=== PATIENT | male | born 1940 | race Caucasian/White ===

== ENCOUNTER 2017-03-21 12:26 | Outpatient (CLI) | payer MEDICARE ==
--- NOTE | 2017-03-21 16:22 | RAD ---
THREE VIEWS LUMBAR SPINE 03/21/2017 HISTORY: Lumbar radiculopathy. COMPARISON: 09/18/2008. FINDINGS: Again noted are 5 [id number] lumbar-type vertebral bodies. Again noted is grade I anterolisthe sis of L4 on L5. There appears to be fusion of the L5-S1 level. There is narrowing of the interver tebral disk spaces throughout the lumbar spine with end-plate degenerative changes seen at the L4-5 level. There are facet degenerative changes seen at the L4-5 level. No fracture is seen. Vascular calcifications seen in the abdominal aorta and iliac arteries. Surgical clips overlie the pelvis. IMPRESSION: 1. Degenerative changes within the lumbar spine. 2. Stable grade I anterolisthesis of L4 on L5, but the degenerative changes have progressed with gre ater loss of intervertebral disk height at all levels. POS: [facility]
--- NOTE | 2017-03-21 16:42 | CT ---
CT LUMBAR SPINE NONCONTRAST: History: Low back pain. Comparison: MRI from 09-12-16. FINDINGS: Vertebral body heights are maintained. Gas disc phenomenon is present at the L2-3, L3-4, a nd L4-5 levels. Minimal degenerative spondylolisthesis at the L4-5 level is similar in appearance to the prior MRI. There is partial fusion at the lumbosacral junction. Disc bulges and central canal and foraminal stenoses are unchanged from the prior MRI. A right pars intraarticularis defect is apparent at the L4-5 level. No acute fracture or dislocation are visible. There is prominent osteophytosis throughout the vertebral bodies and facets. IMPRESSION: 1. Prominent lumbar spondylosis, with stenoses and other degenerative changes, stable compared to MR I from 09-12-16. 2. 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 There is grade I spondylolisthesis at this leve l. 3. No evidence of compression fracture of the lumbar spine. POS: [facility]
== END 2017-03-21 12:27 | disposition home or self-care (01) ==
LOC: NAV CT 12:26
PROVIDERS: ATTEND Nurse Practitioner Family
DX: M47.26 Other spondylosis with radiculopathy, lumbar region (principal); M51.16 Intervertebral disc disorders with radiculopathy, lumbar region; M54.18 Radiculopathy, sacral and sacrococcygeal region
CPT/HCPCS: 72100; 72131

== ENCOUNTER 2017-05-21 15:19 | Outpatient (CLI) | payer MEDICARE ==
--- NOTE | 2017-05-21 16:14 | RAD ---
AP PELVIS ONE VIEW: History: Pelvic and hip pain. FINDINGS: Sacral ala and pelvic hips are intact. Arthritic changes of the hips, sacroiliac joints, and lumbar spine are apparent. Hemostatis clips overlie the prostate bed. Phleboliths project over the pelvis. Coned shaped metallic densities overlie the base of the penis. IMPRESSION: Osteoarthritis of the lumbar spine, hips and sacroiliac joints. POS: [facility]
--- NOTE | 2017-05-21 16:15 | RAD ---
RIGHT HIP TWO VIEWS LEFT HIP TWO VIEWS: History: Bilateral hip pain. FINDINGS: There is mild joint space narrowing, osteophytosis and subchondral sclerosis involving each hip. Eac h femoral head contour is maintained. No acute fracture, dislocation, or aggressive osseous erosions are apparent. IMPRESSION: Mild osteoarthritic changes of each hip. POS: [facility]
== END 2017-05-21 15:20 | disposition home or self-care (01) ==
LOC: NAV RAD 15:19
PROVIDERS: ATTEND Internal Medicine Rheumatology
DX: M25.551 Pain in right hip (principal); M25.552 Pain in left hip; M16.0 Bilateral primary osteoarthritis of hip; M47.816 Spondylosis without myelopathy or radiculopathy, lumbar region; M47.898 Other spondylosis, sacral and sacrococcygeal region
CPT/HCPCS: 72170; 73522

== ENCOUNTER 2019-02-24 09:54 | Outpatient (CLI) | payer MEDICARE ==
--- NOTE | 2019-02-24 10:54 | CT ---
Exam: Lumbar spine CT without contrast HISTORY: Low back pain. Lumbar fusion. Comparison: 12/11/2017 FINDINGS: Redemonstration of bilateral transpedicular screws at L4 and L5. No perihardware lucency. 9 mm of ant erolisthesis of L4 upon L5 (previously 8 mm of anterolisthesis). Persistent vacuum disc phenomenon at L1-L2, L2-L3, L3-L4 and L4-5. Stable mild leftward curvature of the lumbar spine. Symmetric attenuation of the paraspinal muscles. Appropriate attenuation of the visualized solid orga ns. Bilaterally no obstructive uropathy. Atherosclerosis of a nonaneurysmal aorta Findings suggesting cholelithiasis. Evaluation is incomplete. Limited evaluation the contents of the central spinal canal and neural foramina due to technique. T11-T12 and T12-L1: No significant central canal stenosis or neural foraminal narrowing. L1-2: Vacuum disc phenomenon. Generalized disc bulge, ligament flavum thickening and facet hypertroph y result in mild central canal stenosis. Moderate right foraminal narrowing. Mild left foraminal narrowing. L2-L3: Vacuum disc phenomenon. Generalized disc bulge, ligament flavum thickening and facet hypertrop hy result in moderate canal stenosis. Mild to moderate right foraminal narrowing. Left neural foramen is patent. L3-L4: Vacuum disc phenomenon. Limited evaluation due to beam attenuation artifact. There appears be at least moderate central canal stenosis. Vacuum joint phenomenon in the left facet. Mild to moderate right and left foraminal narrowing. L4-L5: Severe loss of disc space height. Limited evaluation due to attenuation artifact. Moderate to severe central canal stenosis. Mild right and moderate left foraminal narrowing. L5-S1: No high-grade central canal stenosis. [id number] bilateral foraminal narrowing. IMPRESSION: 1. Redemonstration of bilateral transpedicular screws at L4 and L5. Persistent grade 1-2 anterolisthe sis of L4 upon L5. 2. Vacuum disc phenomenon at multiple levels as described above. Evaluation of the L4-L5 and L3-L4 le rylie is limited. There appears to be moderate central canal stenosis at L3-L4 and moderate to severe central canal stenosis at L4-L5. Post myelogram CT may be beneficial. 2. Varying degrees of neural foraminal stenosis as detailed above. Transcribed Date/Time: 02/24/2019 12:40 PM
== END 2019-02-24 09:55 | disposition home or self-care (01) ==
LOC: NAV CT 09:54
PROVIDERS: ATTEND Neurological Surgery
DX: M54.5 Low back pain (principal); M43.16 Spondylolisthesis, lumbar region; M48.061 Spinal stenosis, lumbar region without neurogenic claudication; M48.07 Spinal stenosis, lumbosacral region; Z98.890 Other specified postprocedural states
CPT/HCPCS: 72131

== ENCOUNTER 2019-04-24 11:18 | Emergency (ER) | payer MEDICARE ==
[2019-04-24] MEDS ORDERED: traMADol HCl 50 MG TAB ONE (11:50)
--- NOTE | 2019-04-24 12:07 | RAD ---
XR Shoulder Rt 3 View STANDARD HISTORY: Fall on right shoulder COMPARISON: None. FINDINGS: A right humeral head and neck fracture present there are several bony fragments noted. The humeral head appears to be in normal articulation with the glenoid. Arthritic changes of the AC joint are IMPRESSION: Comminuted humeral head and neck fracture. The fracture involves the greater tuberosity r egion as an avulsive type injury but also appears to extend into the humeral neck.
== END 2019-04-24 12:20 | disposition home or self-care (01) ==
LOC: NAV ERS 11:18
DX: S42.201A Unspecified fracture of upper end of right humerus, initial encounter for closed fracture (principal); E78.5 Hyperlipidemia, unspecified; I10 Essential (primary) hypertension; W19.XXXA Unspecified fall, initial encounter

== ENCOUNTER 2019-05-20 00:38 | Emergency (ER) | payer MEDICARE, SELFPAY ==
[2019-05-20] MEDS ORDERED: Fleet Enema 133 ML BOT ONE (00:54)
== END 2019-05-20 01:15 | disposition home or self-care (01) ==
LOC: NAV ERS 00:38
DX: K59.00 Constipation, unspecified (principal); I10 Essential (primary) hypertension; E78.5 Hyperlipidemia, unspecified; Z79.899 Other long term (current) drug therapy; Z79.891 Long term (current) use of opiate analgesic
CPT/HCPCS: 99283

== ENCOUNTER 2019-05-20 15:12 | Outpatient (CLI) | payer MEDICARE | END 2019-05-20 15:13 | disposition home or self-care (01) | LOC: NAV ULT 15:12 | PROVIDERS: ATTEND Internal Medicine | DX: E78.2 Mixed hyperlipidemia (principal); I08.1 Rheumatic disorders of both mitral and tricuspid valves | CPT/HCPCS: 93306 ==

== ENCOUNTER 2019-06-03 14:43 | Outpatient (CLI) | payer MEDICARE ==
[~2019-06-03 14:43] MED LIST: Iopamidol 370 76% 100 ML VIAL ONE
--- NOTE | 2019-06-03 16:15 | CT ---
Exam: CT angiogram of the chest HISTORY: Dyspnea on exertion COMPARISON: None TECHNIQUE: CT angiogram of the chest is performed in the axial plane. Three-dimensional reformatted i mages are submitted for interpretation FINDINGS: Mediastinum: No mass, lymphadenopathy or hematoma. HEART: Normal size. No significant pericardial fluid. Aorta: Atherosclerosis of the aortic knob. No aneurysm, dissection or periaortic fat stranding. Upper solid abdominal viscera: CT evidence of cholelithiasis. No evidence of cholecystitis. The gallb ladder does appear to be contracted Trachea and central bronchi: Patent Pleural spaces: No effusion Lung parenchyma: No masses or consolidation. Dependent atelectatic changes are noted. Pneumothorax: None Osseous structures: Comminuted fracture involving the right humeral head. Pulmonary arteries:Adequate contrast opacification pulmonary arterial system to the level of the loba r arteries. No filling defect to suggest thromboembolism. Evaluation of the segmental and subsegmental arteries is limited due to poor timing of contrast bolus. IMPRESSION: 1. Acute proximal right humerus fracture 2. Limited evaluation the pulmonary arterial system to the timing of contrast bolus. No evidence of a filling defect level of the lobar arteries. 3. Cholelithiasis without definite evidence of cholecystitis. Gallbladder ultrasound if clinically wa rranted
== END 2019-06-03 14:44 | disposition home or self-care (01) ==
LOC: NAV CT 14:43
PROVIDERS: ATTEND Internal Medicine
DX: R06.00 Dyspnea, unspecified (principal); S42.201A Unspecified fracture of upper end of right humerus, initial encounter for closed fracture; K80.20 Calculus of gallbladder without cholecystitis without obstruction
CPT/HCPCS: 71275; Q9967

== ENCOUNTER 2019-11-16 23:11 | Emergency (ER) | payer MEDICARE, OTHER ==
[2019-11-16 23:46] LABS: #Basophils 0.1 thou/uL (0.0-0.2); #Eosinphils 0.7 thou/uL (0.0-0.7); #Lymphocytes 1.7 thou/uL (1.20-3.40); #Monocytes 1.1 thou/uL (0.11-0.59); #Neutrophils 4.8 thou/uL (1.40-6.50); %Basophils 1.4 % (0.0-1.0); %Eosinophils 8.5 % (0.0-10.0); %Lymphocytes 20.5 % (21.0-51.0); %Neutrophils 56.6 % (42.0-75.0); Hemoglobin 13.2 g/dL (14.0-18.0); Mean Corpuscular HGB CONC 33.5 g/dL (32.0-36.0); Mean Corpuscular Hemoglobin 31.8 pg (27.0-31.0); Mean Corpuscular Volume 94.9 fL (78.0-98.0); Mean Platelet Volume 12.6 fL (7.4-10.4); Platelet Count 150 thou/uL (130-400); Platelet Morphology Comment SCANNED; RBC Distribution Width 13.4 % (11.5-14.5); Red Blood Cell (RBC) Count 4.14 mill/uL (4.70-6.10); White Blood Cell (WBC) Count 8.4 thou/uL (4.8-10.8)
[2019-11-16] MEDS ORDERED: Aspirin 325 MG TAB ONE (23:49)
[2019-11-16] MEDS ORDERED: Aspirin Chewable 81 MG TAB ONE ×2 (23:49)
[2019-11-17] LABS: ALT (SGPT) 14 U/L (8-55); AST (SGOT) 13 U/L (5-34); Albumin 4.2 g/dL (3.4-4.8); Alkaline Phosphatase 82 U/L (40-110); Anion Gap 17 mmol/L (10-20); BUN (Urea Nitrogen) 21 mg/dL (8.4-25.7); Bilirubin, Total 0.3 mg/dL (0.2-1.2); CK (CPK) 102 U/L (30-200); Calc. Creatinine Clearance 0 mL/min (70-130); Calcium 9.4 mg/dL (7.8-10.44); Carbon Dioxide 25 mmol/L (23-31); Chloride 106 mmol/L (98-107); Estimated GFR-MDRD 69; Globulin 2.6 g/dL (2.4-3.5); Glucose 132 mg/dL (83-110); Lipase 30 U/L (8-78); Potassium 3.7 mmol/L (3.5-5.1); Protein, Total 6.8 g/dL (5.8-8.1); Sodium 144 mmol/L (136-145)
--- NOTE | 2019-11-17 | RAD ---
XR Chest 1 View Portable History: Chest pain Comparison: Reference is made to CT angiogram chest May 2019 Findings: Heart size mildly enlarged. Mild lung hypoinflation with bibasilar atelectasis. No pneumoth orax. No effusion. No acute osseous abnormality. Advanced degenerative changes of both acromioclavicular joints. Impression: No acute intrathoracic abnormality.
[2019-11-17] MEDS ORDERED: Nitroglycerin 0.4 MG TAB (25 Tab Bottle) ONE (01:20)
[2019-11-17] MEDS ORDERED: Carvedilol 25 MG TAB ONE (01:27)
[2019-11-17] MEDS ORDERED: Cefepime 2 GM VIAL ONE (02:00)
[2019-11-17] MEDS ORDERED: Sodium Chloride 0.9% 100 ML ONE (02:00)
[2019-11-17] MEDS ORDERED: Ketorolac Tromethamine 30 MG/ML VIAL ONE (02:32)
--- NOTE | 2019-11-17 07:38 | CT ---
PRELIMINARY REPORT/[facility]/EMERGENCY AFTER HOURS PROCEDURE Receipt of this report by the clinical staff was confirmed with Abdi Mooer RN by Diane Valenzuela on Nov 17, 2019 01:46:00 SURGICAL SCRUB TECH. Addendum electronically signed by Diane Valenzuela on November 17, 2019 1:47:41 AM SURGICAL SCRUB TECH EXAM: CTA Chest with Intravenous Contrast CTA Abdomen and Pelvis with Intravenous Contrast. CLINICAL HISTORY: PT C/O "NIGHT BEFORE LAST I HAD SOME ABDOMINAL PAIN, THOUGHT IT WAS INDIGESTION FROM FINNISH FOOD, BU T I DIDN'T HAVE ANY OF THAT FOOD TONIGHT AND IT'S GETTING WORSE." REPORTS SHORTNESS OF BREATH STARTED TONIGHT. TECHNIQUE: Axial CTA images of the chest, abdomen and pelvis with intravenous contrast. MIP reconstructed images were created and reviewed. Coronal and sagittal images provided. Exam DLP [id number]. CONTRAST: With; 96ml Isovue 370 COMPARISON: None provided. FINDINGS: VASCULATURE: Aorta: No acute finding. No abdominal aortic aneurysm. No dissection. Pulmonary arteries: The pulmonary arteries are adequately opacified. No pulmonary embolism. Great vessels of aortic arch: No acute finding. No dissection. No arterial occlusion or significant s tenosis. Celiac trunk: No acute finding. No occlusion or significant stenosis. Superior mesenteric artery: No acute finding. No occlusion or significant stenosis. Inferior mesenteric artery: No acute finding. No occlusion or significant stenosis. Renal arteries: No acute finding. No occlusion or significant stenosis. Iliac arteries: No acute finding. No occlusion or significant stenosis. CHEST: Lungs: Unremarkable. No mass. No consolidation. Bibasilar dependent atelectasis. Pleural spaces: No pleural effusion. No pneumothorax. Heart and mediastinum: No cardiomegaly. No significant pericardial effusion. Coronary artery disease. Mitral annular and aortic valvular calcifications. ABDOMEN: Liver: Unremarkable. No mass. Gallbladder and bile ducts: Multiple gallstones with gallbladder wall inflammation. Pancreas: Unremarkable. No ductal dilation. Spleen: Unremarkable. Adrenals: No mass. Kidneys and ureters: The kidneys enhance symmetrically. No hydronephrosis. 1.8 cm nonenhancing cystic lesion at the lower pole of the left kidney. scarring at the upper pole of the left kidney. Stomach and bowel: No obstruction. No bowel wall thickening. No CT evidence of acute diverticulitis. Appendix: No CT evidence for appendicitis. PELVIS: Bladder: Unremarkable. Reproductive: Partially imaged pump, suspected to be penile. Peritoneum: No free fluid. No free air. Lymph nodes: No lymphadenopathy. Bones and soft tissues: No acute osseous abnormality. The soft tissues are unremarkable. IMPRESSION: 1. Gallstones with gallbladder wall inflammation concerning for acute cholecystitis. Recommend surgic al evaluation with consideration for ultrasound. 2. No occlusion or hemodynamically significant stenosis of the arterial system of the chest, abdomen or pelvis. No aortic dissection. No aortic aneurysm. 3. Coronary artery disease and valvular disease. Correlate with findings on echocardiography ELECTRONICALLY SIGNED BY: Marlo Jerez M.D. Nov 17, 2019 1:42:31 AM SURGICAL SCRUB TECH This report is intended for review by the ordering physician only, in accordance of law. If you recei ve this report in error, please call [facility] at [phone]. FINAL REPORT CTA CHEST WITH IV CONTRAST AND 3D POSTPROCESSING CTA ABDOMEN WITH IV CONTRAST AND 3D POSTPROCESSING: I agree with the preliminary report given by Dr. Marlo Jerez of [facility]. Transcribed Date/Time: 11/17/2019 8:11 AM
== END 2019-11-17 02:37 | disposition short-term general hospital (02) ==
LOC: NAV ERS 23:11
DX: K81.0 Acute cholecystitis (principal); E78.00 Pure hypercholesterolemia, unspecified; E78.5 Hyperlipidemia, unspecified; I10 Essential (primary) hypertension; Z79.891 Long term (current) use of opiate analgesic; Z79.82 Long term (current) use of aspirin; Z79.899 Other long term (current) drug therapy
CPT/HCPCS: 36415; 71045; 71275; 72191; 74175; 80053; 82550; 83690; 84484; 85025; 93005; 96365; 96375; J0692; J1885; J3490; Q9967

== ENCOUNTER 2022-05-18 10:14 | Outpatient (CLI) | payer MEDICARE | END 2022-05-18 10:15 | disposition home or self-care (01) | LOC: NAV RAD 10:14 | PROVIDERS: ATTEND Neurological Surgery | DX: M47.26 Other spondylosis with radiculopathy, lumbar region (principal); Z98.890 Other specified postprocedural states | CPT/HCPCS: 72110 ==

== ENCOUNTER 2023-01-02 07:29 | Inpatient (IN) | payer MEDICARE ==
[2023-01-02] MEDS ORDERED: traMADol HCl 50 MG TAB PO PRN (13:01)
[2023-01-02] MEDS ORDERED: Cepastat Lozenges 1 LOZ PO PRN (13:09)
[2023-01-02] MEDS ORDERED: HYDROcodone/Acetaminophen 5/325 mg Tablet PO PRN (13:09)
[2023-01-02] MEDS ORDERED: Benzonatate 100 MG CAP PO PRN (13:09)
[2023-01-02] MEDS ORDERED: Bisacodyl 10 MG SUPP PR PRN (13:09)
[2023-01-02] MEDS ORDERED: Loperamide HCl 2 MG CAP PO PRN (13:09)
[2023-01-02] MEDS ORDERED: Acetaminophen 650 MG Suppository PR PRN (13:09)
[2023-01-02] MEDS ORDERED: Calcium Carbonate 500 MG ChewTAB PO PRN (13:09)
[2023-01-02] MEDS ORDERED: Ondansetron ODT 4 MG TAB PO PRN (13:09)
[2023-01-02] MEDS ORDERED: Bisacodyl 5 MG TAB PO PRN (13:09)
[2023-01-02] MEDS ORDERED: Acetaminophen 325 MG TAB PO PRN (13:09)
[2023-01-02] MEDS ORDERED: Artificial Tear Sol 15 ML BOT EA EYE PRN (13:09)
[2023-01-02] MEDS ORDERED: Guaifenesin DM 100-10/5 ML UDCUP PO PRN (13:09)
[2023-01-02] MEDS ORDERED: Sodium Chloride 0.65% Nasal 44 ML BOT EA NARE PRN (13:09)
[2023-01-02] MEDS: [UNRECOGNIZED DRUG - REMARK] PO SCH ×2 (17:39→20:25)
[2023-01-02] MEDS: Latanoprost 0.005% Ophth Soln 2.5 ml Bottle EA EYE SCH (20:26)
[2023-01-02] MEDS: Apixaban 5 MG TAB PO SCH (20:26)
[2023-01-02] MEDS: Carvedilol 6.25 MG TAB PO SCH (20:27)
[2023-01-02] MEDS: Senokot S 8.6-50 MG TAB PO SCH (20:27)
[2023-01-02] MEDS: valACYclovir 500 MG TAB PO SCH (20:28)
[2023-01-02] MEDS: Atorvastatin Calcium 20 MG TAB PO SCH (20:28)
[2023-01-02] MEDS: Gabapentin 300 MG CAP PO SCH (20:28)
[2023-01-02] MEDS: Loratadine 10 MG TAB PO SCH (20:29)
[2023-01-02] MEDS: Melatonin 3 MG TAB PO SCH (20:29)
[2023-01-03 06:09] LABS: #Basophils 0.1 thou/uL (0.0-0.2); #Eosinphils 0.4 thou/uL (0.0-0.7); #Lymphocytes 1.1 thou/uL (1.20-3.40); #Monocytes 0.9 thou/uL (0.11-0.59); %Basophils 1.4 % (0.0-1.0); %Eosinophils 4.6 % (0.0-10.0); %Lymphocytes 13.4 % (21.0-51.0); %Neutrophils 70.5 % (42.0-75.0); Hemoglobin 9.8 g/dL (14.0-18.0); Mean Corpuscular HGB CONC 32.5 g/dL (32.0-36.0); Mean Corpuscular Hemoglobin 31.2 pg (27.0-31.0); Mean Corpuscular Volume 95.9 fl (78.0-98.0); Mean Platelet Volume 9.2 fL (7.4-10.4); Platelet Count 275 10x3/uL (130-400); Red Blood Cell (RBC) Count 3.15 mill/uL (4.70-6.10); White Blood Cell (WBC) Count 8.5 10x3/uL (4.8-10.8)
[2023-01-03 06:22] LABS: ALT (SGPT) 26 U/L (8-55); AST (SGOT) 17 U/L (5-34); Albumin 3.4 g/dL (3.4-4.8); Alkaline Phosphatase 132 U/L (40-110); Anion Gap 13 mmol/L (10-20); BUN (Urea Nitrogen) 22 mg/dL (8.4-25.7); Bilirubin, Total 0.4 mg/dL (0.2-1.2); Calc. Creatinine Clearance 90 mL/min (70-130); Calcium 9.3 mg/dL (7.8-10.44); Carbon Dioxide 27 mmol/L (23-31); Chloride 102 mmol/L (98-107); Estimated GFR 88; Glucose 103 mg/dL (83-110); Potassium 4.2 mmol/L (3.5-5.1); Protein, Total 6.4 g/dL (5.8-8.1); Sodium 138 mmol/L (136-145)
[2023-01-03] MEDS: HYDROcodone/Acetaminophen 5/325 mg Tablet PO PRN (08:37)
[2023-01-03] MEDS: Losartan 25 MG TAB PO SCH (08:39)
[2023-01-03] MEDS: Gabapentin 300 MG CAP PO SCH ×2 (08:40→21:01)
[2023-01-03] MEDS: Cholecalciferol 1,000 UNITS (25 MCG) TAB PO SCH (08:41)
[2023-01-03] MEDS: DULoxetine 30 MG CAP PO SCH (08:41)
[2023-01-03] MEDS: Furosemide 20 MG TAB PO SCH (08:42)
[2023-01-03] MEDS: Oxybutynin 5 MG TAB PO SCH (08:43)
[2023-01-03] MEDS: Aspirin 81 mg Enteric Coated Tablet PO SCH (08:43)
[2023-01-03] MEDS: Apixaban 5 MG TAB PO SCH ×2 (08:43→21:00)
[2023-01-03] MEDS: Carvedilol 6.25 MG TAB PO SCH ×2 (08:44→21:00)
[2023-01-03] MEDS: Fluticasone Propionate Nasal Spray 16 gm Bottle NASAL SCH (08:45)
[2023-01-03] MEDS: Senokot S 8.6-50 MG TAB PO SCH ×2 (08:50→21:03)
[2023-01-03] MEDS: Relugolix [Orgovyx] 120 MG Tablet PO SCH (08:52)
[2023-01-03] MEDS: [UNRECOGNIZED DRUG - REMARK] PO SCH ×4 (08:52→21:03)
[2023-01-03] MEDS: Atorvastatin Calcium 20 MG TAB PO SCH (21:00)
[2023-01-03] MEDS: Melatonin 3 MG TAB PO SCH (21:02)
[2023-01-03] MEDS: Latanoprost 0.005% Ophth Soln 2.5 ml Bottle EA EYE SCH (21:02)
[2023-01-03] MEDS: Loratadine 10 MG TAB PO SCH (21:02)
[2023-01-03] MEDS: valACYclovir 500 MG TAB PO SCH (21:03)
[2023-01-04] MEDS: Cholecalciferol 1,000 UNITS (25 MCG) TAB PO SCH (07:57)
[2023-01-04] MEDS: DULoxetine 30 MG CAP PO SCH (07:57)
[2023-01-04] MEDS: Gabapentin 300 MG CAP PO SCH ×2 (07:58→21:26)
[2023-01-04] MEDS: Furosemide 20 MG TAB PO SCH (07:58)
[2023-01-04] MEDS: Senokot S 8.6-50 MG TAB PO SCH ×2 (07:58→21:29)
[2023-01-04] MEDS: Aspirin 81 mg Enteric Coated Tablet PO SCH (07:58)
[2023-01-04] MEDS: Oxybutynin 5 MG TAB PO SCH (07:58)
[2023-01-04] MEDS: Apixaban 5 MG TAB PO SCH ×2 (08:00→21:26)
[2023-01-04] MEDS: Carvedilol 6.25 MG TAB PO SCH ×2 (08:03→21:26)
[2023-01-04] MEDS: Fluticasone Propionate Nasal Spray 16 gm Bottle NASAL SCH (08:03)
[2023-01-04] MEDS: Losartan 25 MG TAB PO SCH (08:03)
[2023-01-04] MEDS: [UNRECOGNIZED DRUG - REMARK] PO SCH ×4 (08:06→21:28)
[2023-01-04] MEDS: Relugolix [Orgovyx] 120 MG Tablet PO SCH (13:26)
[2023-01-04] MEDS: Atorvastatin Calcium 20 MG TAB PO SCH (21:26)
[2023-01-04] MEDS: Melatonin 3 MG TAB PO SCH (21:28)
[2023-01-04] MEDS: Loratadine 10 MG TAB PO SCH (21:28)
[2023-01-04] MEDS: valACYclovir 500 MG TAB PO SCH (21:29)
[2023-01-04] MEDS: Latanoprost 0.005% Ophth Soln 2.5 ml Bottle EA EYE SCH (21:52)
[2023-01-05] MEDS: Oxybutynin 5 MG TAB PO SCH (09:25)
[2023-01-05] MEDS: Senokot S 8.6-50 MG TAB PO SCH ×2 (09:25→21:38)
[2023-01-05] MEDS: Gabapentin 300 MG CAP PO SCH ×2 (09:25→21:35)
[2023-01-05] MEDS: Cholecalciferol 1,000 UNITS (25 MCG) TAB PO SCH (09:25)
[2023-01-05] MEDS: Losartan Potassium 50 MG TAB PO SCH (09:26)
[2023-01-05] MEDS: Carvedilol 6.25 MG TAB PO SCH ×2 (09:26→21:37)
[2023-01-05] MEDS: Aspirin 81 mg Enteric Coated Tablet PO SCH (09:26)
[2023-01-05] MEDS: Apixaban 5 MG TAB PO SCH ×2 (09:26→21:38)
[2023-01-05] MEDS: Furosemide 20 MG TAB PO SCH (09:26)
[2023-01-05] MEDS: [UNRECOGNIZED DRUG - REMARK] PO SCH ×4 (09:27→22:39)
[2023-01-05] MEDS: Fluticasone Propionate Nasal Spray 16 gm Bottle NASAL SCH (09:27)
[2023-01-05] MEDS: DULoxetine 30 MG CAP PO SCH (09:27)
[2023-01-05] MEDS: Relugolix [Orgovyx] 120 MG Tablet PO SCH (14:02)
[2023-01-05] MEDS: Latanoprost 0.005% Ophth Soln 2.5 ml Bottle EA EYE SCH (21:35)
[2023-01-05] MEDS: valACYclovir 500 MG TAB PO SCH (21:35)
[2023-01-05] MEDS: Loratadine 10 MG TAB PO SCH (21:35)
[2023-01-05] MEDS: Atorvastatin Calcium 20 MG TAB PO SCH (21:38)
[2023-01-05] MEDS: Melatonin 3 MG TAB PO SCH (21:38)
[2023-01-06] MEDS: HYDROcodone/Acetaminophen 5/325 mg Tablet PO PRN (09:03)
[2023-01-06] MEDS: Gabapentin 300 MG CAP PO SCH ×2 (09:07→21:21)
[2023-01-06] MEDS: Senokot S 8.6-50 MG TAB PO SCH ×2 (09:07→21:21)
[2023-01-06] MEDS: DULoxetine 30 MG CAP PO SCH (09:07)
[2023-01-06] MEDS: Fluticasone Propionate Nasal Spray 16 gm Bottle NASAL SCH (09:09)
[2023-01-06] MEDS: Cholecalciferol 1,000 UNITS (25 MCG) TAB PO SCH (09:10)
[2023-01-06] MEDS: Aspirin 81 mg Enteric Coated Tablet PO SCH (09:10)
[2023-01-06] MEDS: Apixaban 5 MG TAB PO SCH ×2 (09:10→21:21)
[2023-01-06] MEDS: Losartan Potassium 50 MG TAB PO SCH (09:11)
[2023-01-06] MEDS: Oxybutynin 5 MG TAB PO SCH (09:11)
[2023-01-06] MEDS: Furosemide 20 MG TAB PO SCH (09:11)
[2023-01-06] MEDS: Carvedilol 6.25 MG TAB PO SCH ×2 (09:11→21:20)
[2023-01-06] MEDS: [UNRECOGNIZED DRUG - REMARK] PO SCH ×4 (09:12→21:23)
[2023-01-06] MEDS: Relugolix [Orgovyx] 120 MG Tablet PO SCH (09:13)
[2023-01-06 19:40] VITALS: BMI 25.2
[2023-01-06] MEDS: Loratadine 10 MG TAB PO SCH (21:21)
[2023-01-06] MEDS: valACYclovir 500 MG TAB PO SCH (21:21)
[2023-01-06] MEDS: Atorvastatin Calcium 20 MG TAB PO SCH (21:21)
[2023-01-06] MEDS: diphenhydrAMINE 25 MG CAP PO PRN (21:22)
[2023-01-06] MEDS: Melatonin 3 MG TAB PO SCH (21:22)
[2023-01-06] MEDS: Latanoprost 0.005% Ophth Soln 2.5 ml Bottle EA EYE SCH (21:23)
[2023-01-07 05:42] LABS: #Basophils 0.1 thou/uL (0.0-0.2); #Eosinphils 0.4 thou/uL (0.0-0.7); #Lymphocytes 1.4 thou/uL (1.20-3.40); #Monocytes 1.2 thou/uL (0.11-0.59); #Neutrophils 6.7 thou/uL (1.40-6.50); %Basophils 1.3 % (0.0-1.0); %Eosinophils 4.5 % (0.0-10.0); %Lymphocytes 14.1 % (21.0-51.0); %Neutrophils 68.2 % (42.0-75.0); Mean Corpuscular HGB CONC 32.8 g/dL (32.0-36.0); Mean Corpuscular Hemoglobin 31.5 pg (27.0-31.0); Mean Corpuscular Volume 96.2 fl (78.0-98.0); Mean Platelet Volume 10.2 fL (7.4-10.4); Platelet Count 234 10x3/uL (130-400); RBC Distribution Width 14.4 % (11.5-14.5); Red Blood Cell (RBC) Count 3.18 mill/uL (4.70-6.10); White Blood Cell (WBC) Count 9.9 10x3/uL (4.8-10.8)
[2023-01-07 05:48] LABS: Anion Gap 15 mmol/L (10-20); BUN (Urea Nitrogen) 17 mg/dL (8.4-25.7); Calc. Creatinine Clearance 86 mL/min (70-130); Calcium 9.6 mg/dL (7.8-10.44); Carbon Dioxide 26 mmol/L (23-31); Chloride 104 mmol/L (98-107); Estimated GFR 88; Glucose 104 mg/dL (83-110); Potassium 4.8 mmol/L (3.5-5.1); Sodium 140 mmol/L (136-145)
[2023-01-07] MEDS: Cholecalciferol 1,000 UNITS (25 MCG) TAB PO SCH (08:57)
[2023-01-07] MEDS: [UNRECOGNIZED DRUG - REMARK] PO SCH ×4 (08:57→21:47)
[2023-01-07] MEDS: Fluticasone Propionate Nasal Spray 16 gm Bottle NASAL SCH (08:57)
[2023-01-07] MEDS: Aspirin 81 mg Enteric Coated Tablet PO SCH (08:58)
[2023-01-07] MEDS: Carvedilol 6.25 MG TAB PO SCH ×2 (08:58→21:45)
[2023-01-07] MEDS: Furosemide 20 MG TAB PO SCH (08:58)
[2023-01-07] MEDS: Losartan Potassium 50 MG TAB PO SCH (08:58)
[2023-01-07] MEDS: DULoxetine 30 MG CAP PO SCH (08:58)
[2023-01-07] MEDS: Apixaban 5 MG TAB PO SCH ×2 (08:59→21:46)
[2023-01-07] MEDS: Gabapentin 300 MG CAP PO SCH ×2 (08:59→21:45)
[2023-01-07] MEDS: Oxybutynin 5 MG TAB PO SCH (08:59)
[2023-01-07] MEDS: Senokot S 8.6-50 MG TAB PO SCH ×2 (10:12→21:44)
[2023-01-07] MEDS: Relugolix [Orgovyx] 120 MG Tablet PO SCH ×2 (13:17→14:38)
[2023-01-07] MEDS ORDERED: Relugolix [Orgovyx] 120 MG Tablet PO SCH (14:00)
[2023-01-07] MEDS: Melatonin 3 MG TAB PO SCH (21:44)
[2023-01-07] MEDS: Latanoprost 0.005% Ophth Soln 2.5 ml Bottle EA EYE SCH (21:44)
[2023-01-07] MEDS: Atorvastatin Calcium 20 MG TAB PO SCH (21:45)
[2023-01-07] MEDS: Loratadine 10 MG TAB PO SCH (21:45)
[2023-01-07] MEDS: diphenhydrAMINE 25 MG CAP PO PRN (21:45)
[2023-01-07] MEDS: valACYclovir 500 MG TAB PO SCH (21:45)
[2023-01-08] MEDS: Fluticasone Propionate Nasal Spray 16 gm Bottle NASAL SCH (08:39)
[2023-01-08] MEDS: Cholecalciferol 1,000 UNITS (25 MCG) TAB PO SCH (08:39)
[2023-01-08] MEDS: Furosemide 20 MG TAB PO SCH (08:40)
[2023-01-08] MEDS: DULoxetine 30 MG CAP PO SCH (08:40)
[2023-01-08] MEDS: Carvedilol 6.25 MG TAB PO SCH ×2 (08:40→21:39)
[2023-01-08] MEDS: Losartan Potassium 50 MG TAB PO SCH (08:40)
[2023-01-08] MEDS: Gabapentin 300 MG CAP PO SCH ×2 (08:40→21:40)
[2023-01-08] MEDS: Aspirin 81 mg Enteric Coated Tablet PO SCH (08:40)
[2023-01-08] MEDS: Senokot S 8.6-50 MG TAB PO SCH ×2 (08:41→21:40)
[2023-01-08] MEDS: Oxybutynin 5 MG TAB PO SCH (08:41)
[2023-01-08] MEDS: Apixaban 5 MG TAB PO SCH ×2 (08:41→21:40)
[2023-01-08] MEDS: [UNRECOGNIZED DRUG - REMARK] PO SCH ×4 (08:42→21:46)
[2023-01-08] MEDS: Relugolix [Orgovyx] 120 MG Tablet PO SCH (13:47)
[2023-01-08] MEDS: Latanoprost 0.005% Ophth Soln 2.5 ml Bottle EA EYE SCH (21:39)
[2023-01-08] MEDS: diphenhydrAMINE 25 MG CAP PO PRN (21:40)
[2023-01-08] MEDS: Atorvastatin Calcium 20 MG TAB PO SCH (21:40)
[2023-01-08] MEDS: Loratadine 10 MG TAB PO SCH (21:40)
[2023-01-08] MEDS: Melatonin 3 MG TAB PO SCH (21:40)
[2023-01-08] MEDS: valACYclovir 500 MG TAB PO SCH (21:40)
[2023-01-09] MEDS: Cholecalciferol 1,000 UNITS (25 MCG) TAB PO SCH (09:02)
[2023-01-09] MEDS: Fluticasone Propionate Nasal Spray 16 gm Bottle NASAL SCH (09:02)
[2023-01-09] MEDS: Losartan Potassium 50 MG TAB PO SCH (09:03)
[2023-01-09] MEDS: Carvedilol 6.25 MG TAB PO SCH ×2 (09:03→21:06)
[2023-01-09] MEDS: DULoxetine 30 MG CAP PO SCH (09:03)
[2023-01-09] MEDS: Apixaban 5 MG TAB PO SCH ×2 (09:04→21:05)
[2023-01-09] MEDS: Aspirin 81 mg Enteric Coated Tablet PO SCH (09:04)
[2023-01-09] MEDS: Furosemide 20 MG TAB PO SCH (09:04)
[2023-01-09] MEDS: Oxybutynin 5 MG TAB PO SCH (09:04)
[2023-01-09] MEDS: Gabapentin 300 MG CAP PO SCH ×2 (09:04→21:05)
[2023-01-09] MEDS: Senokot S 8.6-50 MG TAB PO SCH ×2 (09:04→21:05)
[2023-01-09] MEDS: [UNRECOGNIZED DRUG - REMARK] PO SCH ×4 (09:05→21:06)
[2023-01-09] MEDS: Relugolix [Orgovyx] 120 MG Tablet PO SCH (16:59)
[2023-01-09] MEDS: Latanoprost 0.005% Ophth Soln 2.5 ml Bottle EA EYE SCH (21:04)
[2023-01-09] MEDS: diphenhydrAMINE 25 MG CAP PO PRN (21:05)
[2023-01-09] MEDS: Loratadine 10 MG TAB PO SCH (21:05)
[2023-01-09] MEDS: valACYclovir 500 MG TAB PO SCH (21:06)
[2023-01-09] MEDS: Atorvastatin Calcium 20 MG TAB PO SCH (21:06)
[2023-01-09] MEDS: Melatonin 3 MG TAB PO SCH (21:06)
[2023-01-10 06:20] LABS: #Basophils 0.1 thou/uL (0.0-0.2); #Eosinphils 0.5 thou/uL (0.0-0.7); #Lymphocytes 1.6 thou/uL (1.20-3.40); #Neutrophils 5.6 thou/uL (1.40-6.50); %Basophils 0.7 % (0.0-1.0); %Eosinophils 5.4 % (0.0-10.0); %Lymphocytes 18.3 % (21.0-51.0); %Neutrophils 64.6 % (42.0-75.0); Hemoglobin 9.7 g/dL (14.0-18.0); Mean Corpuscular HGB CONC 32.4 g/dL (32.0-36.0); Mean Corpuscular Volume 95.5 fl (78.0-98.0); Platelet Count 218 10x3/uL (130-400); Red Blood Cell (RBC) Count 3.13 mill/uL (4.70-6.10); White Blood Cell (WBC) Count 8.6 10x3/uL (4.8-10.8)
[2023-01-10 07:58] VITALS: BP 127/70; TEMP 97.6
[2023-01-10] MEDS: Cholecalciferol 1,000 UNITS (25 MCG) TAB PO SCH (08:14)
[2023-01-10] MEDS: Losartan Potassium 50 MG TAB PO SCH (08:14)
[2023-01-10] MEDS: Aspirin 81 mg Enteric Coated Tablet PO SCH (08:14)
[2023-01-10] MEDS: Senokot S 8.6-50 MG TAB PO SCH (08:14)
[2023-01-10] MEDS: Apixaban 5 MG TAB PO SCH (08:15)
[2023-01-10] MEDS: DULoxetine 30 MG CAP PO SCH (08:15)
[2023-01-10] MEDS: Carvedilol 6.25 MG TAB PO SCH (08:15)
[2023-01-10] MEDS: Gabapentin 300 MG CAP PO SCH (08:16)
[2023-01-10] MEDS: Oxybutynin 5 MG TAB PO SCH (08:17)
[2023-01-10] MEDS: Furosemide 20 MG TAB PO SCH (08:17)
[2023-01-10] MEDS: Fluticasone Propionate Nasal Spray 16 gm Bottle NASAL SCH (08:17)
[2023-01-10] MEDS: [UNRECOGNIZED DRUG - REMARK] PO SCH (08:18)
== END 2023-01-10 11:15 | disposition home health service (06) | DRG 561 ==
LOC: NAV ACUTE 14:43
PROVIDERS: ADMIT Family Medicine; ATTEND Family Medicine
DX: Z47.89 Encounter for other orthopedic aftercare (principal); R73.03 Prediabetes; I25.10 Atherosclerotic heart disease of native coronary artery without angina pectoris; N18.30 Chronic kidney disease, stage 3 unspecified; I12.9 Hypertensive chronic kidney disease with stage 1 through stage 4 chronic kidney disease, or unspecified chronic kidney disease; G47.33 Obstructive sleep apnea (adult) (pediatric); M81.0 Age-related osteoporosis without current pathological fracture; E78.2 Mixed hyperlipidemia; G47.00 Insomnia, unspecified; R29.818 Other symptoms and signs involving the nervous system; Z79.82 Long term (current) use of aspirin; Z79.899 Other long term (current) drug therapy; Z79.01 Long term (current) use of anticoagulants; Z85.46 Personal history of malignant neoplasm of prostate; Z98.890 Other specified postprocedural states; Z98.1 Arthrodesis status
CPT/HCPCS: 36415; 80048; 80053; 85025

== ENCOUNTER 2025-02-27 13:24 | Emergency (ER) | payer OTHER | END 2025-02-27 14:55 | disposition home or self-care (01) | LOC: NAV ERS 13:24 | DX: Z45.010 Encounter for checking and testing of cardiac pacemaker pulse generator [battery] (principal); I11.0 Hypertensive heart disease with heart failure; I50.9 Heart failure, unspecified; E78.2 Mixed hyperlipidemia; Z79.899 Other long term (current) drug therapy; Z79.82 Long term (current) use of aspirin | CPT/HCPCS: 93005; 99284 ==